=== PATIENT | female | born 1990 | race Caucasian/White ===

== ENCOUNTER 2022-02-15 05:35 | Inpatient (IN) | payer OTHER ==
[2022-02-15] VITALS (26 sets, daily range): BP systolic 103–138; BP diastolic 55–82; PULSE 56–121; TEMP 98–98.8
[~2022-02-15] VITALS: Ht 162.6 cm; Wt 60.5 kg
--- NOTE | 2022-02-15 05:45 | NUR ---
PT TO UNIT AMBULATORY WITH COMPLAINTS OF SROM AT 0445, CLEAR FLUID. PT ORIENTED TO ROOM, EFM X2 APPLIED, VS OBTAINED, SVE PERFORMED.
[2022-02-15 06:48] LABS: BASO % 0.4 % (0.0-2.0); EOS # 0.2 K/mm3 (0.0-0.7); EOS % 2.3 % (0.0-4.0); GRAN # 4.9 K/mm3 (1.4-6.5); GRAN % 59.7 % (42.2-75.2); HEMATOCRIT 38.6 % (37.0-47.0); HEMOGLOBIN 13.4 g/dl (12.5-16.0); LYMPH # 2.5 K/mm3 (1.2-3.4); LYMPH % 30.8 % (20.0-51.0); MEAN CELL VOLUME 91 fl (80.0-100.0); MEAN CORPUSCULAR HEMOGLOBIN 32 pg (27-31); MEAN CORPUSCULAR HGB CONC 35 g/dl (33.0-37.0); MEAN PLATELET VOLUME 12.6 fl (7.4-10.4); MONO # 0.5 K/mm3 (0.1-0.6); MONO % 6.6 % (1.7-9.3); PLATELET COUNT 138 K/mm3 (130-400); RED BLOOD COUNT 4.24 M/mm3 (4.10-5.30); REDCELL DISTRIBUTION WIDTH-CV 13.2 % (11.5-14.5)
--- NOTE | 2022-02-15 07:35 | NUR ---
LR BOLUS INFUSING. PT SITTING ON EDGE OF BED FOR EPIDURAL PLACEMENT. DIFFICULTY TRACING EFM/TOCO DUE TO MATERNAL POSITIONING. VITAL SIGNS STABLE AT THIS TIME. 0735: SINGLE SHOT PER BREONNA SEYMOUR. PT TOLERATED PROCEDURE WELL.
[2022-02-15] MEDS ORDERED: NATURAL MAGNES200 MG PO (07:47)
[2022-02-15] MEDS ORDERED: PRENATAL TABLET PO (07:47)
--- NOTE | 2022-02-15 10:38 | NUR ---
0925: AT BEDSIDE. SVE COMPLETE/+3 PER . VORB TO BEGIN PUSHING. 0935: ROOM PREPARED AND PT BEGINS PUSHING AT THIS TIME. GREAT MATERNAL EFFORTS, MOVE HEAD WELL. ALL APPROPRIATE STAFF UPDATED ON CURRENT STATUS OF PATIENT. 1038: OF VIABLE MALE INFANT PER AT THIS TIME. FOB UNABLE TO ATTEND DELIVERY DUE TO DUTIES. INFANT PLACED ON MATERNAL ABDOMEN, CORD CLAMPED X2 AND CUT BY . CARE OF ASSUMED BY YANY GREENBERG RN AND TRAE MATHEWS RN. 1041: OF PLACENTA PER . PITOCIN INFUSING PER PROTOCOL. BEGINS REPAIR OF SECOND DEGREE LACERATION AND LABIAL TEAR. PT TOLERATING PROCEDURE WELL. LOCHIA MODERATE, NO CLOTS NOTED. FUNDUS FIRM AT UMBILICUS. WILL CONTINUE WITH CARES PER PROTOCOL. VITAL SIGNS STABLE AT THIS TIME. BLEEDING CONTROLLED UPON SUTURING LACERATIONS.
--- NOTE | 2022-02-15 13:45 | NUR ---
PT UNABLE TO RAISE AND HOLD RIGHT LEG, LEFT LEG REPORTED AT "HEAVY". PT EXPERIENCING NAUSEA FOLLOWING LUNCH. NO SUPPORT PERSON PRESENT, FOB EN ROUTE AT THIS TIME. THIS NURSE OFFERS TO TAKE INFANT TO THE NURSERY AND PT REPORTS BEING "JUST REALLY TIRED." BABY FUSSY, INTERMITTENTLY /CLUSTER FEEDING. PT AGREEABLE TO ALLOW TO LEAVE ROOM SO SHE CAN REST FOR 30 MINUTES THEN ATTEMPT TO MOVE TO HER ROOM. VITAL SIGNS STABLE. LOCHIA SCANT. FUNDUS REMAINS FIRM, 1FB BELOW UMBILICUS. PAD AND ICE PACK CHANGED AT THIS TIME. PT DENIES PAIN. WILL CONTINUE TO MONITOR.
[2022-02-16 00:45] VITALS: BP 120/73; PULSE 60; TEMP 98
[2022-02-16 04:15] VITALS: BP 105/58; PULSE 77; TEMP 98.2
[2022-02-16 08:30] VITALS: BP 125/81; PULSE 75; TEMP 98
[2022-02-16] MEDS ORDERED: IBU800 M1 PO (09:14)
--- NOTE | 2022-02-16 15:30 | NUR ---
Discharge instructions and follow up care reviewed with pt and at the bedside. Both verbalized an understanding, agreed with the plan and states no questions or concerns at this time.
== END 2022-02-16 16:40 | disposition home or self-care (01) | DRG 807 ==
LOC: LDRO 05:35 → LDR 06:00 → OB 06:00
PROVIDERS: Obstetrics & Gynecology; ADMIT Obstetrics & Gynecology
PROC: 10E0XZZ Delivery of Products of Conception, External Approach (ICD-10-PCS; principal; 2022-02-15)
PROC: 0KQM0ZZ Repair Perineum Muscle, Open Approach (ICD-10-PCS; 2022-02-15)
DX: O35.1XX0 Maternal care for (suspected) chromosomal abnormality in fetus, not applicable or unspecified (principal); Z37.0 Single live birth; Q99.2 Fragile X chromosome; O70.1 Second degree perineal laceration during delivery; Z3A.37 37 weeks gestation of pregnancy
CPT/HCPCS: J7120